=== PATIENT | male | born 1985 | race Caucasian/White ===

== ENCOUNTER 2016-05-12 16:30 | Emergency (ER) | payer MEDICAID ==
[~2016-05-12] VITALS: Wt 58.0 kg
[~2016-05-12 16:30] MED LIST: INSU100I27 SQ; NOVO3I SC
[2016-05-12] MEDS ORDERED: BENZ100C70 PO (17:56)
[2016-05-12] MEDS ORDERED: ALBU8.5H3 INH (17:56)
[2016-05-12] MEDS ORDERED: AZIT250T94 PO (17:56)
[2016-05-12] MEDS ORDERED: ACET500C5 PO (17:56)
--- NOTE | 2016-05-12 21:09 | ERD ---
ER Documentation Chief Complaint Date/Time DATE: 05/12/16 TIME: 21:07 Chief Complaint cough HPI 30-year-old male with a past medical history of diabetes presents to the ED complaining of fever, dry cough, headache, chest congestion that started 1 week ago. Patient states that he has not tried taking any medications. States that he is currently taking insulin after every meal. Reports that he has normal blood sugars. Denies any abdominal pain, nausea, vomiting, diarrhea, rashes, chest pain, shortness of breath, dyspnea on exertion, pleuritic chest pain, leg swelling. Denies any recent traveling. ROS All systems reviewed and are negative except as per history of present illness. Medications Home Meds Active Scripts Acetaminophen* (Tylophen*) 500 Mg Capsule, 1 CAP PO Q6H Y for PAIN AND OR ELEVATED TEMP, #20 CAP Prov:SB CARREON PA-C 05/12/16 Benzonatate* (Tessalon Perle*) 100 Mg Capsule, 100 MG PO Q8H Y for COUGH, #20 CAP Prov:SB CARREON PA-C 05/12/16 Albuterol Sulfate* (Proair HFA*) 8.5 Gm Hfa.aer.ad, 2 PUFF INH Q4, #1 INHALER Prov:SB CARREON PA-C 05/12/16 Azithromycin* (Zithromax*) 250 Mg Tablet, 250 MG PO .ZPACK DIRECTED, #6 TAB TAKE 500 MG (2 TABS) THE FIRST DAY THEN 250 MG (1 TAB) DAYS 2-5 Prov:SB CARREON PA-C 05/12/16 Reported Medications Insulin Detemir (Levemir Flextouch) 100 Unit/1 Ml Insuln.pen, 20 UNIT SQ AC BREAKFAST BEDTIME 03/22/16 Insulin Aspart* (Novolog Insulin Pen*) 100 Unit/Ml Soln, 10-20 UNIT SC WITH MEALS, EA 03/22/16 Allergies Allergies: Coded Allergies: No Known Allergy (Unverified , 03/22/16) PMhx/Soc History of Surgery: Yes (rt hand 2013) Anesthesia Reaction: No Hx Neurological Disorder: No Hx Respiratory Disorders: No Hx Cardiac Disorders: No Hx Psychiatric Problems: No Hx Miscellaneous Medical Probl: Yes (DM) Hx Alcohol Use: No (quit 4 months ago) Hx Substance Use: No (quit 4 months ago) Hx Tobacco Use: No (quit 4 months ago) Smoking Status: Never smoker Physical Exam Vitals Vital Signs Date Time Temp Pulse Resp B/P Pulse Ox O2 Delivery O2 Flow Rate FiO2 05/12/16 16:37 97.8 100 20 117/72 98 Physical Exam Const: [id number], well-nourished. In no acute distress. Head: Atraumatic, normocephalic Eyes: Normal Conjunctiva without injection. No purulent discharge. PERRL. EOMI ENT: Normal external ear. Ear canal without erythema. Tympanic membrane pearly nuñez without effusion or bulging. Nasal canal clear with normal turbinates. Moist oropharynx without tonsillar exudates. Non-erythematous pharynx. Uvula midline. No drooling. No trismus. Neck: Full range of motion. No meningismus. No cervical lymphadenopathy. Resp: Clear to auscultation bilaterally. No wheezing, rhonchi, rales, or crackles. No accessory muscle use. No retractions. Cardio: Regular rate and rhythm. No murmurs, rubs or gallops. Abd: Soft, non tender, non distended. Normal bowel sounds. No palpable masses. No rebound tenderness. No guarding. Skin: No petechiae or rashes Back: No midline tenderness. No CVA tenderness. Ext: No cyanosis, or edema. Neur: Awake and alert. Psych: Normal Mood and Affect Procedures/MDM 30-year-old male with no significant past medical history presents the ED complaining of cough, headache, chest congestion. Patient is afebrile and nontoxic-appearing. Patient has normal vital signs. This patient presents to the ED with symptoms consistent with bronchitis. Patient is afebrile and has normal vital signs. Patient's physical exam include lungs which were clear to auscultation and a normal pulse oximetry. There is a low suspicion for pneumonia , pneumothorax, pulmonary embolism, epiglottitis, otitis media, otitis externa, viral/strep pharyngitis, sinusitis, peritonsillar abscess, mastoiditis, retropharyngeal abscess, meningitis, sepsis, acute abdomen or other emergent conditions. Fluids, rest, and symptomatic treatment are recommended for the management of patient's symptoms. Discharge medications: Zithromax, Tylenol, Pro-air, Tessalon Perles Patient was instructed to return to the ED for any new or worsening symptoms. They should otherwise follow up with the primary care provider within 1-2 days. The patient's questions were answered at the time of discharge. Patient understood and agreed with discharge management. Departure Diagnosis: Primary Impression: Bronchitis Condition: Stable Patient Instructions: Bronchitis, Antiobiotic Treatment (Adult) Referrals: [facility] YOU HAVE RECEIVED A MEDICAL SCREENING EXAM AND THE RESULTS INDICATE THAT YOU DO NOT HAVE A CONDITION THAT REQUIRES URGENT TREATMENT IN THE EMERGENCY DEPARTMENT. FURTHER EVALUATION AND TREATMENT OF YOUR CONDITION CAN WAIT UNTIL YOU ARE SEEN IN YOUR DOCTORS OFFICE WITHIN THE NEXT 1-2 DAYS. IT IS YOUR RESPONSIBILITY TO MAKE AN APPOINTMENT FOR FOLOW-UP CARE. IF YOU HAVE A PRIMARY DOCTOR --you should call your primary doctor and schedule an appointment IF YOU DO NOT HAVE A PRIMARY DOCTOR YOU CAN CALL OUR PHYSICIAN REFERRAL HOTLINE AT IF YOU CAN NOT AFFORD TO SEE A PHYSICIAN YOU CAN CHOSE FROM THE FOLLOWING [facility] [address] [facility] [address] [facility]. [facility] [address] [facility] [address] [facility] [place] [address] [facility]. [address] [facility]. [facility] YOU HAVE RECEIVED A MEDICAL SCREENING EXAM AND THE RESULTS INDICATE THAT YOU DO NOT HAVE A CONDITION THAT REQUIRES URGENT TREATMENT IN THE EMERGENCY DEPARTMENT. FURTHER EVALUATION AND TREATMENT OF YOUR CONDITION CAN WAIT UNTIL YOU ARE SEEN IN YOUR DOCTORS OFFICE WITHIN THE NEXT 1-2 DAYS. IT IS YOUR RESPONSIBILITY TO MAKE AN APPOINTMENT FOR FOLOW-UP CARE. IF YOU HAVE A PRIMARY DOCTOR --you should call your primary doctor and schedule and appointment IF YOU DO NOT HAVE A PRIMARY DOCTOR YOU CAN CALL OUR PHYSICIAN REFERRAL HOTLINE AT . IF YOU CAN NOT AFFORD TO SEE A PHYSICIAN YOU CAN CHOSE FROM THE FOLLOWING [facility] INSTITUTIONS: [facility] [place] [id number] [place] [id number] [facility] [address] [place] [address] [facility] + [facility] [address] [place] [address] [facility] URGENT CARE/SPECIALTIES Additional Instructions: Visite a tabares trevin garcia para un EXAMEN.Regrese a estas instalaciones si no se mejora keshav esperbamos o keshav le dijimos. SB CARREON PA-C May 12, 2016 21:09
== END 2016-05-12 18:26 | disposition home or self-care (01) ==
LOC: FTE 16:30
DX: J20.9 Acute bronchitis, unspecified (principal); E11.9 Type 2 diabetes mellitus without complications; Z87.891 Personal history of nicotine dependence; Z79.4 Long term (current) use of insulin
CPT/HCPCS: 99284

== ENCOUNTER 2017-02-10 20:13 | Emergency (ER) | payer SELFPAY ==
[~2017-02-10] VITALS: Ht 167.6 cm; Wt 53.1 kg
[~2017-02-10 20:13] MED LIST changes: +ACET500C5 PO; +ALBU8.5H3 INH; +AZIT250T94 PO; +BENZ100C70 PO
[2017-02-10 20:21] VITALS: Ht 167.6 cm; Wt 53.1 kg
== END 2017-02-10 23:49 | disposition left against medical advice (07) ==
LOC: E/R 20:13
DX: Z53.21 Procedure and treatment not carried out due to patient leaving prior to being seen by health care provider (principal)

== ENCOUNTER 2017-02-25 23:56 | Emergency (ER) | payer SELFPAY ==
[~2017-02-25] VITALS: Ht 170.2 cm; Wt 61.3 kg
[2017-02-26 00:49] VITALS: Ht 170.2 cm; Wt 61.3 kg
--- NOTE | 2017-02-26 00:49 | ERD ---
ER Documentation Chief Complaint Chief Complaint sob x 15 minutes. states feels like something stuck in throat, etoh, edible HPI 31-year-old man brought in by girlfriend for complaints of shortness of breath after waking up about an hour prior to arrival. He describes a sore throat but denies fevers or chills, no cough, no calf or leg swelling. Patient denies difficulty swallowing or speaking. ROS All systems reviewed and are negative except as per history of present illness. Medications Home Meds Active Scripts Acetaminophen* (Tylophen*) 500 Mg Capsule, 1 CAP PO Q6H Y for PAIN AND OR ELEVATED TEMP, #20 CAP Prov:SB CARREON PA-C 05/12/16 Benzonatate* (Tessalon Perle*) 100 Mg Capsule, 100 MG PO Q8H Y for COUGH, #20 CAP Prov:SB CARREON PA-C 05/12/16 Albuterol Sulfate* (Proair HFA*) 8.5 Gm Hfa.aer.ad, 2 PUFF INH Q4, #1 INHALER Prov:SB CARREON PA-C 05/12/16 Azithromycin* (Zithromax*) 250 Mg Tablet, 250 MG PO .ZPACK DIRECTED, #6 TAB TAKE 500 MG (2 TABS) THE FIRST DAY THEN 250 MG (1 TAB) DAYS 2-5 Prov:SB CARREON PA-C 05/12/16 Reported Medications Insulin Detemir (Levemir Flextouch) 100 Unit/1 Ml Insuln.pen, 20 UNIT SQ AC BREAKFAST BEDTIME 03/22/16 Insulin Aspart* (Novolog Insulin Pen*) 100 Unit/Ml Soln, 10-20 UNIT SC WITH MEALS, EA 03/22/16 Allergies Allergies: Coded Allergies: No Known Allergy (Unverified , 02/10/17) PMhx/Soc Diabetes mellitus, anemia, history of drug and alcohol abuse, hypertension History of Surgery: Yes (rt hand 2013) Anesthesia Reaction: No Hx Neurological Disorder: No Hx Respiratory Disorders: No Hx Cardiac Disorders: No Hx Psychiatric Problems: No Hx Miscellaneous Medical Probl: Yes (DM) Hx Alcohol Use: No (quit 4 months ago) Hx Substance Use: No (quit 4 months ago) Hx Tobacco Use: No (quit 4 months ago) FmHx Family History: diabetes Physical Exam Vitals Vital Signs Date Time Temp Pulse Resp B/P Pulse Ox O2 Delivery O2 Flow Rate FiO2 02/26/17 03:50 97.9 120 12 109/67 97 Room Air 02/26/17 03:00 110 14 128/97 99 02/26/17 02:56 92 20 98 21 02/26/17 02:00 96 15 114/75 99 Room Air 02/26/17 01:00 16 110/74 99 Room Air 02/26/17 00:45 98.6 99 15 130/97 99 Room Air 02/26/17 00:01 98.6 121 20 167/111 95 Physical Exam GENERAL: Well-developed, well-nourished, appears intoxicated, afebrile HEENT: Moist mucous membranes, pink conjunctiva, no cervical spine tenderness or step-off deformities, no goiter, no jaundice or icterus, extraocular movements intact without pain. No submandibular induration, and no pharyngeal erythema NEURO: Alert and oriented 3, cranial nerves II through XII intact bilaterally, pupils equal round reactive to light, no focal deficits or facial asymmetry, sensation intact distally Strength 5/5 in upper and lower extremities bilaterally CARDIAC: Tachycardic and regular, no murmurs rubs or gallops LUNGS: Poor breath sounds bilaterally, scattered wheezes, no crackles or stridor ABDOMEN: Soft nontender, no guarding, no rigidity, no rebound, no psoas sign no obturator sign. Normoactive bowel sounds SKIN: Warm and dry to touch, no abrasions, contusions, or hematomas, no lacerations, no ecchymosis, no target lesions, and without ulcers EXTREMITIES: No clubbing cyanosis or edema, calves are bilaterally symmetrical, no Homans sign, no popliteal cord sign. Distal pulses equal and bilateral PSYCH: Normal affect without agitation or irritability Result Diagram: 02/26/1711402/26/17114 Results 24 hrs Laboratory Tests Test 02/26/17 00:45 02/26/17 00:59 02/26/17 01:15 02/26/17 02:55 Bedside Glucose 241mg/dL Blood Gas Specimen Source Blood arterial Arterial Blood Date Drawn 02/26/2017 1:20:40 AM Arterial Blood pH (Temp corrected) 7.407 Arterial Blood pCO2 (Temp correct) 42.7mmhg Arterial Blood pO2 (Temp corrected) 92.1mmHG Arterial Blood HCO3 26.3mmol/L Arterial Blood Base Excess 1.4mmol/L Arterial Blood Oxygen Saturation 96.7mmHG Ian Test ACCEPTAB Arterial Blood Gas Puncture Site Right Radial Arterial Blood Carboxyhemoglobin 0.3% Arterial Blood Methemoglobin 0.3% Blood Gas A-a O2 Differential 6.5mmHg Oxyhemoglobin Percent 96.1% Total Hemoglobin 10.8g/dl Blood Gas Temperature 37.0C Blood Gas Actual Respiration Rate 18 Blood Gas Modality ROOM AIR FiO2 21.0% Blood Gas Notified Whom Blood Gas Notified Time 02/26/2017 1:26:15 AM White Blood Count 8.210^3/ul Red Blood Count 3.2210^6/ul Hemoglobin 9.9g/dl Hematocrit 29.9% Mean Corpuscular Volume 92.9fl Mean Corpuscular Hemoglobin 30.7pg Mean Corpuscular Hemoglobin Concent 33.1g/dl Red Cell Distribution Width 13.2% Platelet Count 18845^3/UL Mean Platelet Volume 9.8fl Neutrophils % 71.4% Lymphocytes % 18.4% Monocytes % 8.3% Eosinophils % 1.0% Basophils % 0.5% Nucleated Red Blood Cells % 0.0/100WBC Neutrophils # 5.910^3/ul Lymphocytes # 1.510^3/ul Monocytes # 0.710^3/ul Eosinophils # 0.110^3/ul Basophils # 0.010^3/ul Nucleated Red Blood Cells # 0.010^3/ul Sodium Level 141mmol/L Potassium Level 4.9mmol/L Chloride Level 103mmol/L Carbon Dioxide Level 30mmol/L Anion Gap 13 Blood Urea Nitrogen 15mg/dl Creatinine 0.55mg/dl Glucose Level 253mg/dl Calcium Level 9.0mg/dl Total Bilirubin 0.0mg/dl Direct Bilirubin 0.00mg/dl Indirect Bilirubin 0.0mg/dl Aspartate Amino Transf (AST/SGOT) 30IU/L Alanine Aminotransferase (ALT/SGPT) 45IU/L Alkaline Phosphatase 83IU/L Troponin I < 0.012ng/ml Total Protein 6.6g/dl Albumin 3.4g/dl Globulin 3.20g/dl Albumin/Globulin Ratio 1.06 Lipase 79U/L Ethyl Alcohol Level < 10.0mg/dl Urine Color STRAW Urine Clarity CLEAR Urine pH 7.0 Urine Specific [place] 1.017 Urine Ketones NEGATIVEmg/dL Urine Nitrite NEGATIVEmg/dL Urine Bilirubin NEGATIVEmg/dL Urine Urobilinogen NEGATIVEmg/dL Urine Leukocyte Esterase NEGATIVELeu/ul Urine Hemoglobin NEGATIVEmg/dL Urine Glucose 3+mg/dL Urine Total Protein NEGATIVEmg/dl Urine Opiates Screen Negative Urine Barbiturates Negative Urine Amphetamines Screen Negative Urine Benzodiazepines Screen Negative Urine Cocaine Screen Negative Urine Cannabinoids Positive Current Medications Medications (Trade) Dose Ordered Sig/Allie Route PRN Reason Start Time Stop Time Status Last Admin Dose Admin Sodium Chloride (NS) 1,000 ml @ 1,000 mls/hr Q1H STAT IV 02/26/17 00:59 02/26/17 01:58 DC 02/26/17 01:50 Albuterol (Proventil 0.5% (Neb)) 10 mg ONCE STAT INH 02/26/17 00:59 02/26/17 01:02 DC 02/26/17 02:56 Procedures/MDM IV line was established patient was placed on conveyor monitor rhythm strip revealed a sinus tachycardia at 110 bpm. Patient was afebrile. EKG performed, read by me: 97 bpm, normal sinus rhythm, normal axis, no acute ST segment changes, narrow QRS complex, with good R-wave progression in precordial leads. Chest X-ray 1V Interpreted by me: Soft Tissue: No acute abnormalities Bones: No acute abnormalities Mediastinum/Cardiac Silhouette/Lungs: No acute abnormalities ABG performed, normal. I administered 1 L normal saline intravenously and albuterol 10 mg via nebulizer for complaints of shortness of breath. CBC and electrolytes were normal, liver function tests were normal, troponin was negative, ethanol level was negative, drug screen positive for cannabinoids. Patient has no obvious oral or pharyngeal foreign body and has no pharyngeal erythema or exudates, uvula is midline, and is no submandibular induration. Pulmonary exam was repeated by me after breathing treatment and was normal, he had clear lungs without wheezing or stridor. Respiratory rate was normal at about 18 breaths per minute and oxygen saturation was within normal limits. Differential diagnoses considered, included but not limited to acute coronary syndrome, pulmonary embolism, aortic dissection, abdominal aortic aneurysm, sepsis, stroke, meningitis, encephalitis, pneumonia, appendicitis, cholecystitis , bowel obstruction, pyelonephritis, nephrolithiasis, cystitis, as well as metabolic, hematologic, and electrolyte abnormalities. As well as abscess, cellulitis, fractures, and dislocations. Patient feels much better at this time, and vital signs are normal, symptoms have improved. I did give strict instructions to return to the ED if symptoms continue or worsen, patient will otherwise follow-up with primary care physician. Patient understood instructions and agreed to plan. Disclaimer: Inadvertent spelling and grammatical errors are likely due to EHR/ dictation software use and do not reflect on the overall quality of patient care. Also, please note that the electronic time recorded on this note does not necessarily reflect the actual time of the patient encounter. Departure Diagnosis: Primary Impression: Shortness of breath Condition: Good RAHUL QUIROZ MD Feb 26, 2017 00:49
[2017-02-26] MEDS ORDERED: ALBUTEROL 0.5% (NEB) 2.5 MG/0.5 ML AMP INH STA (00:59)
[2017-02-26] MEDS ORDERED: SOD CHLORIDE 0.9% 1,000 ML IV STA (00:59)
[2017-02-26 01:51] LABS: BASOPHILS % 0.5 % (0.0-2.0); EOSINOPHILS # 0.1 10^3/ul (0.0-0.5); HEMATOCRIT 29.9 % (42.0-52.0); HEMOGLOBIN 9.9 g/dl (14.0-18.0); LYMPHOCYTES # 1.5 10^3/ul (0.8-2.9); LYMPHOCYTES % 18.4 % (15.0-51.0); MEAN CORPUSCULAR HEMOGLOBIN 30.7 pg (29.0-33.0); MEAN CORPUSCULAR HGB CONC 33.1 g/dl (32.0-37.0); MEAN CORPUSCULAR VOLUME 92.9 fl (82.0-101.0); MEAN PLATELET VOLUME 9.8 fl (7.4-10.4); MONOCYTE # 0.7 10^3/ul (0.3-0.9); MONOCYTES % 8.3 % (0.0-11.0); NEUTROPHIL # 5.9 10^3/ul (1.6-7.5); NEUTROPHILS % 71.4 % (39.0-77.0); PLATELET COUNT 430 10^3/UL (140-415); RED BLOOD COUNT 3.22 10^6/ul (4.70-6.10); RED CELL DISTRIBUTION WIDTH 13.2 % (11.5-14.5); WHITE BLOOD COUNT 8.2 10^3/ul (4.8-10.8)
[2017-02-26 02:06] LABS: ALANINE AMINOTRANSFERASE 45 IU/L (13-69); ALBUMIN 3.4 g/dl (3.3-4.9); ALBUMIN/GLOBULIN RATIO 1.06; ALKALINE PHOSPHATASE 83 IU/L (42-121); ANION GAP 13 (8-16); ASPARTATE AMINO TRANSFERASE 30 IU/L (15-46); BLOOD UREA NITROGEN 15 mg/dl (7-20); CARBON DIOXIDE 30 mmol/L (21-31); CHLORIDE 103 mmol/L (97-110); CREATININE 0.55 mg/dl (0.61-1.24); GLUCOSE 253 mg/dl (70-220); POTASSIUM 4.9 mmol/L (3.5-5.1); SODIUM 141 mmol/L (135-144); TOTAL PROTEIN 6.6 g/dl (6.1-8.1)
[2017-02-26 02:21] LABS: TROPONIN-I < 0.012 ng/ml (0.00-0.12)
[2017-02-26 02:48] LABS: AADO2 Arterial 6.5 mmHg (7.0-24.0); Allen Test ACCEPTAB; Arterial Base Excess 1.4 mmol/L (-3.0-3); Arterial COHb 0.3 % (0.0-3.0); Arterial Fraction of Oxyhgb 96.1 % (93.0-99.0); Arterial HCO3 26.3 mmol/L (22.0-26.0); Arterial MetHb 0.3 % (0.0-1.5); Arterial Total Hemglobin 10.8 g/dl (12.0-18.0); MODE ROOM AIR
[2017-02-26 03:23] LABS: ADD UMIC NO; UR ASCORBIC ACID NEGATIVE (NEGATIVE); UR BILIRUBIN (Dip) NEGATIVE (NEGATIVE); UR BLOOD (Dip) NEGATIVE (NEGATIVE); UR CLARITY CLEAR (CLEAR); UR COLOR STRAW (YELLOW); UR GLUCOSE (Dip) 3+ mg/dL (NEGATIVE); UR KETONES (Dip) NEGATIVE (NEGATIVE); UR LEUKOCYTE ESTERASE (Dip) NEGATIVE Leu/ul (NEGATIVE); UR NITRITE (Dip) NEGATIVE (NEGATIVE); UR SPECIFIC GRAVITY (Dip) 1.017 (1.003-1.030); UR TOTAL PROTEIN (Dip) NEGATIVE (NEGATIVE); UR UROBILINOGEN (Dip) NEGATIVE (NEGATIVE)
[2017-02-26 03:50] VITALS: BP 109/67; PULSE 120; RESP 12; TEMP 97.9
[2017-02-26 03:54] LABS: BARBITURATES Negative (NEGATIVE); BENZODIAZEPINES Negative (NEGATIVE); CANNABINOIDS Positive (NEGATIVE); COCAINE Negative (NEGATIVE); OPIATES Negative (NEGATIVE)
--- NOTE | 2017-02-26 04:02 | RADRPT ---
PROCEDURE: CHEST - 1 VIEW CLINICAL INDICATION: 31-year-old male with shortness of breath. TECHNIQUE: A single frontal AP semi-erect portable view of the chest was performed. The images we re reviewed on a PACS workstation. COMPARISON: CR CHEST 10/23/2015; CR CHEST 03/22/2015; CR CHEST 02/05/2015 FINDINGS: The cardiomediastinal silhouette has a normal appearance. There is no evidence for an infiltrate. T he pulmonary vascularity is within normal limits. There is no evidence for pneumothorax or pneumomed iastinum. The osseous structures are intact. IMPRESSION: No evidence for active cardiopulmonary disease. .Wale Campbell MD, Date Time Electronically viewed and signed by .Wale Campbell MD, on 02/26/2017 04:02 .[place]
== END 2017-02-26 04:18 | disposition home or self-care (01) ==
LOC: E/R 23:56
DX: R06.02 Shortness of breath (principal)
CPT/HCPCS: 36415; 36600; 71010; 80053; 80306; 80307; 81003; 82803; 82962; 83690; 84484; 85025; 93005; 94644; 99285; J7030

== ENCOUNTER 2017-02-28 15:05 | Emergency (ER) | payer MEDICAID ==
[~2017-02-28] VITALS: Ht 167.6 cm; Wt 65.0 kg
[2017-02-28 15:16] VITALS: Ht 167.6 cm; Wt 65.0 kg
[2017-02-28] MEDS ORDERED: DEXTROSE 50% 50 ML SYRINGE ONE (15:22)
[2017-02-28] MEDS ORDERED: FLUMAZENIL 0.5 MG INJ ONE (15:30)
[2017-02-28] MEDS ORDERED: DEXTROSE 50% 50 ML SYRINGE IV STA (15:40)
[2017-02-28] MEDS ORDERED: FLUMAZENIL 0.5 MG INJ IV ONE (16:00)
[2017-02-28] MEDS ORDERED: DEXTROSE 50% 50 ML SYRINGE IV ONE (16:00)
[2017-02-28 16:30] LABS: CALCIUM 9.4 mg/dl (8.4-10.2); CREATININE 0.53 mg/dl (0.61-1.24); POTASSIUM 3.5 mmol/L (3.5-5.1)
--- NOTE | 2017-02-28 17:09 | ERD ---
ER Documentation Chief Complaint Chief Complaint BIB [facility] FOR EVAL OF LOW GLUCOSE. MEDICATED BY EMS RESEARCH ASSISTANT. HPI This a 31-year-old male who is found laying in the grass having a seizure by bystanders. EMS was called he was given Versed to stop the seizure. Blood sugar was checked his blood glucose was 44. He was given an amp of glucose and his sugar courtney the patient was better clinically but he was very groggy from the Versed. On arrival is difficult to question him because he kept falling asleep during examination. I will reverse the Versed with Romazicon. After Romazicon was given the patient is more awake and alert in and he states that he has had multiple episodes of hypoglycemic seizures past. The patient states that he took his insulin this morning but has eaten very little today. Says he has no headache chest pain breathing problems abdominal pain extremity pain.. He said he does not have epilepsy but his seizures are always due to hypoglycemic spells ROS All systems reviewed and are negative except as per history of present illness. Medications Home Meds Reported Medications Insulin Detemir (Levemir Flextouch) 100 Unit/1 Ml Insuln.pen, 10 UNIT SQ AC BREAKFAST BEDTIME 03/22/16 Insulin Aspart* (Novolog Insulin Pen*) 100 Unit/Ml Soln, 15 UNIT SC WITH MEALS, EA 03/22/16 Discontinued Scripts Acetaminophen* (Tylophen*) 500 Mg Capsule, 1 CAP PO Q6H Y for PAIN AND OR ELEVATED TEMP, #20 CAP Prov:SB CARREON PA-C 05/12/16 Benzonatate* (Tessalon Perle*) 100 Mg Capsule, 100 MG PO Q8H Y for COUGH, #20 CAP Prov:SB CARREON PA-C 05/12/16 Albuterol Sulfate* (Proair HFA*) 8.5 Gm Hfa.aer.ad, 2 PUFF INH Q4, #1 INHALER Prov:SB CARREON PA-C 05/12/16 Azithromycin* (Zithromax*) 250 Mg Tablet, 250 MG PO .ZPACK DIRECTED, #6 TAB TAKE 500 MG (2 TABS) THE FIRST DAY THEN 250 MG (1 TAB) DAYS 2-5 Prov:SB CARREON PA-C 05/12/16 Allergies Allergies: Coded Allergies: No Known Allergy (Unverified , 02/28/17) PMhx/Soc History of Surgery: Yes (rt hand 2013) Anesthesia Reaction: No Hx Neurological Disorder: No Hx Respiratory Disorders: No (No resp hx ) Hx Cardiac Disorders: No Hx Psychiatric Problems: No Hx Miscellaneous Medical Probl: Yes (IDDM Age 18) Hx Alcohol Use: Yes (2-3 beers/day (32 oz ea), ) Hx Substance Use: No (denies.) Hx Tobacco Use: No Smoking Status: Former smoker FmHx Family History: No coronary disease Physical Exam Vitals Vital Signs Date Time Temp Pulse Resp B/P Pulse Ox O2 Delivery O2 Flow Rate FiO2 02/28/17 19:17 107 18 142/100 100 Room Air 02/28/17 17:00 104 18 128/96 98 Room Air 02/28/17 15:16 97.9 96 18 145/99 97 Physical Exam Const: Well-developed, well-nourished Head: Atraumatic, normocephalic Eyes: Normal Conjunctiva, PERRLA, EOMI, normal sclera, no nystagmus ENT: Normal External Ears, Nose and Mouth, moist mucus membranes. Neck: Full range of motion. No meningismus, no lymphadenopathy. Resp: Clear to auscultation bilaterally, no wheezing, rhonchi, rales Cardio: Regular rate and rhythm, no murmurs, S1 S2 present Abd: Soft, non tender x 4, non distended. Normal bowel sounds, no guarding or rebound, no pulsitile abdominal masses or bruits Skin: No petechiae or rashes, no ecchymosis , no maculopapular rash Back: No midline or flank tenderness Ext: No cyanosis, or edema, FROM x 4, normal inspection, neurovascularly intact x 4 Neur: Awake and alert, STR 5/5 x 4, sensation intact x 4, no focal findings, cerebellum intact Psych: Normal Mood and Affect Result Diagram: 02/28/17 1600 Results 24 hrs Laboratory Tests Test 02/28/17 15:19 02/28/17 16:00 02/28/17 16:03 02/28/17 16:53 Bedside Glucose 48mg/dL 120mg/dL 142mg/dL Sodium Level 141mmol/L Potassium Level 3.5mmol/L Chloride Level 101mmol/L Carbon Dioxide Level 33mmol/L Anion Gap 11 Blood Urea Nitrogen 15mg/dl Creatinine 0.53mg/dl Glucose Level 44mg/dl Calcium Level 9.4mg/dl Test 02/28/17 18:40 Bedside Glucose 150mg/dL Current Medications Medications (Trade) Dose Ordered Sig/Allie Route PRN Reason Start Time Stop Time Status Last Admin Dose Admin Dextrose (D50w Syringe) 50 ml ONCE STAT IV 02/28/17 15:40 02/28/17 15:42 DC 02/28/17 15:54 Dextrose (D50w Syringe) 50 ml ONCE ONCE IV 02/28/17 16:00 02/28/17 16:01 DC 02/28/17 15:54 Flumazenil (Romazicon) 0.2 mg ONCE ONCE IV 02/28/17 16:00 02/28/17 16:01 DC 02/28/17 15:54 Flumazenil (Romazicon) 0.5 mg STK-MED ONCE .ROUTE 02/28/17 15:30 02/28/17 16:33 DC Dextrose (D50w Syringe) 50 ml STK-MED ONCE .ROUTE 02/28/17 15:22 02/28/17 16:33 DC Procedures/MDM Patient was given glucose intravenously as well as had a food tray. Subsequent rechecks of the blood sugar been adequate and stable for couple of hours of discharge home Departure Diagnosis: Primary Impression: Hypoglycemia Additional Impression: Seizure Condition: Stable MILEY JENKINS DO Feb 28, 2017 17:09
[2017-02-28 19:17] VITALS: BP 142/100; PULSE 107; RESP 18
== END 2017-02-28 19:35 | disposition home or self-care (01) ==
LOC: E/R 15:05
DX: E11.649 Type 2 diabetes mellitus with hypoglycemia without coma (principal); Z87.891 Personal history of nicotine dependence; Z79.4 Long term (current) use of insulin
CPT/HCPCS: 80048; 82962; 96374; 96375; Z7502; Z7610

== ENCOUNTER 2017-03-02 20:26 | Emergency (ER) | payer MEDICAID ==
[~2017-03-02] VITALS: Ht 170.2 cm; Wt 58.9 kg
[~2017-03-02 20:26] MED LIST changes: -ACET500C5 PO; -ALBU8.5H3 INH; -AZIT250T94 PO; -BENZ100C70 PO
[2017-03-02 20:50] VITALS: Ht 170.2 cm; Wt 58.9 kg
[2017-03-02] MEDS ORDERED: SODIUM CHLORIDE 0.9% 1L BAG IV* STA (21:10)
--- NOTE | 2017-03-02 21:12 | ERD ---
ER Documentation Chief Complaint Chief Complaint HYPERGLYCEMIA WITH FEVER AND POLANCO X 2 DAYS HPI 31-year-old male with a history of insulin-dependent diabetes mellitus, chronic alcohol and methamphetamine abuse brought to the ED by his parents for evaluation of a 2 day history of fevers, body aches, generalized malaise, headache, abdominal pain, nausea, vomiting and productive cough. Denies chest pain, palpitations or shortness of breath. Subjective fevers and chills. Denies ill contacts or recent travel. Patient was seen in the ED 2 days ago for altered mental status secondary to hypoglycemia. ROS All systems reviewed and are negative except as per history of present illness. Medications Home Meds Active Scripts Acetaminophen* (Tylenol*) 325 Mg Tablet, 2 TAB PO Q4 for FEVER, #20 TAB Prov:SHAY GARZA MD 03/03/17 Ibuprofen* (Motrin*) 600 Mg Tab, 600 MG PO Q6 Y for PAIN, #20 TAB Prov:SHAY GARZA MD 03/03/17 Ciprofloxacin Hcl* (Ciprofloxacin Hcl*) 500 Mg Tablet, 500 MG PO BID for 10 Days , TAB Prov:SHAY GARZA MD 03/03/17 Reported Medications Insulin Detemir (Levemir Flextouch) 100 Unit/1 Ml Insuln.pen, 10 UNIT SQ AC BREAKFAST BEDTIME 03/22/16 Insulin Aspart* (Novolog Insulin Pen*) 100 Unit/Ml Soln, 15 UNIT SC WITH MEALS, EA 03/22/16 Discontinued Scripts Acetaminophen* (Tylophen*) 500 Mg Capsule, 1 CAP PO Q6H Y for PAIN AND OR ELEVATED TEMP, #20 CAP Prov:SB CARREON PA-C 05/12/16 Benzonatate* (Tessalon Perle*) 100 Mg Capsule, 100 MG PO Q8H Y for COUGH, #20 CAP Prov:SB CARREON PA-C 05/12/16 Albuterol Sulfate* (Proair HFA*) 8.5 Gm Hfa.aer.ad, 2 PUFF INH Q4, #1 INHALER Prov:SB CARREON PA-C 05/12/16 Azithromycin* (Zithromax*) 250 Mg Tablet, 250 MG PO .ZPACK DIRECTED, #6 TAB TAKE 500 MG (2 TABS) THE FIRST DAY THEN 250 MG (1 TAB) DAYS 2-5 Prov:SB CARREON PA-C 05/12/16 Allergies Allergies: Coded Allergies: No Known Allergy (Unverified , 03/02/17) PMhx/Soc Reviewed in chart History of Surgery: Yes (rt hand 2013) Anesthesia Reaction: No Hx Neurological Disorder: No Hx Respiratory Disorders: No (No resp hx ) Hx Cardiac Disorders: No Hx Psychiatric Problems: No Hx Miscellaneous Medical Probl: Yes (IDDM Age 18) Hx Alcohol Use: Yes (2-3 beers/day (32 oz ea), ) Hx Substance Use: No (denies.) Hx Tobacco Use: No FmHx No family history relevant to presenting complaint Physical Exam Vitals Vital Signs Date Time Temp Pulse Resp B/P Pulse Ox O2 Delivery O2 Flow Rate FiO2 03/02/17 23:15 100.5 108 16 118/72 97 Room Air 03/02/17 21:40 Nasal Cannula 2 03/02/17 20:50 104.0 128 24 146/71 100 Physical Exam Const: Alert, moderate distress Head: Atraumatic Eyes: Normal Conjunctiva ENT: Normal External Ears, Nose and Mouth. Lungs clear without erythema or exudate Neck: Full range of motion. No meningismus. Resp: Breath sounds are equal and clear to auscultation bilaterally Cardio: Regular rate and rhythm, no murmurs Abd: Soft, mild, generalized tenderness but no rebound or guarding. Skin: No petechiae or rashes Back: No midline or flank tenderness Ext: No cyanosis, or edema Neur: Awake and alert. No focal deficit observed. Psych: Cooperative, anxious. Result Diagram: 03/02/17212903/02/172129 Results 24 hrs Laboratory Tests Test 03/02/17 20:48 03/02/17 21:10 03/02/17 21:30 03/02/17 23:53 Bedside Glucose 324mg/dL Blood Gas Specimen Source Blood venous Arterial Blood Date Drawn 03/02/2017 10:33:50 PM Arterial Blood Gas Puncture Site VENOUS LINE Ian Test N/A Venous Blood pH 7.409 Venous Blood pCO2 (Temp Corrected) 40.9mmHG Venous Blood pO2 (Temp Corrected) 32.5mmHG Venous Blood HCO3 25.3mmol/L Venous Blood Oxygen Saturation 62.0mmHG Venous Blood Base Excess 0.6mmol/L Venous Blood Total Hemoglobin 11.4g/dl Venous Blood Oxyhemoglobin 61.9% Venous Blood Methemoglobin 0.1% Carboxyhemoglobin 0.1% Blood Gas Temperature 37.0C Blood Gas Modality ROOM AIR FiO2 21.0% Blood Gas Notified Whom AA Blood Gas Notified Time 03/02/2017 10:41:03 PM White Blood Count 13.310^3/ul Red Blood Count 3.5210^6/ul Hemoglobin 10.8g/dl Hematocrit 31.7% Mean Corpuscular Volume 90.1fl Mean Corpuscular Hemoglobin 30.7pg Mean Corpuscular Hemoglobin Concent 34.1g/dl Red Cell Distribution Width 13.1% Platelet Count 56239^3/UL Mean Platelet Volume 10.1fl Neutrophils % 82.2% Lymphocytes % 7.1% Monocytes % 9.6% Eosinophils % 0.1% Basophils % 0.3% Nucleated Red Blood Cells % 0.0/100WBC Neutrophils # 10.910^3/ul Lymphocytes # 0.910^3/ul Monocytes # 1.310^3/ul Eosinophils # 0.010^3/ul Basophils # 0.010^3/ul Nucleated Red Blood Cells # 0.010^3/ul Prothrombin Time 13.9Sec Prothrombin Time Ratio 1.1 INR International Normalized Ratio 1.06 Activated Partial Thromboplast Time 34.7Sec Urine Color YELLOW Urine Clarity TURBID Urine pH 6.0 Urine Specific [place] 1.020 Urine Ketones NEGATIVEmg/dL Urine Nitrite NEGATIVEmg/dL Urine Bilirubin NEGATIVEmg/dL Urine Urobilinogen NEGATIVEmg/dL Urine Leukocyte Esterase 3+Elizabeth/ul Urine Microscopic RBC > 182/HPF Urine Microscopic WBC > 182/HPF Urine Hemoglobin 3+mg/dL Urine Glucose 3+mg/dL Urine Total Protein 2+mg/dl Sodium Level 127mmol/L Potassium Level 4.4mmol/L Chloride Level 91mmol/L Carbon Dioxide Level 29mmol/L Anion Gap 11 Blood Urea Nitrogen 15mg/dl Creatinine 0.70mg/dl Glucose Level 342mg/dl Lactic Acid Level 1.2mmol/L 0.8mmol/L Calcium Level 9.5mg/dl Total Bilirubin 0.4mg/dl Direct Bilirubin 0.00mg/dl Indirect Bilirubin 0.4mg/dl Aspartate Amino Transf (AST/SGOT) 23IU/L Alanine Aminotransferase (ALT/SGPT) 43IU/L Alkaline Phosphatase 115IU/L Troponin I < 0.012ng/ml Total Protein 6.8g/dl Albumin 3.5g/dl Globulin 3.30g/dl Albumin/Globulin Ratio 1.06 Urine Opiates Screen Negative Urine Barbiturates Negative Urine Amphetamines Screen Negative Urine Benzodiazepines Screen Negative Urine Cocaine Screen Negative Urine Cannabinoids Negative Lipase 37U/L Ethyl Alcohol Level < 10.0mg/dl Current Medications Medications (Trade) Dose Ordered Sig/Allie Route PRN Reason Start Time Stop Time Status Last Admin Dose Admin Sodium Chloride 1830 ml 1,830 ml BOLUS OVER 2 HOURS STAT IV* 03/02/17 21:10 03/02/17 21:12 DC 03/02/17 21:43 Cefepime HCl 50 ml @ 100 mls/hr ONCE STAT IVPB 03/02/17 22:03 03/02/17 22:32 DC 03/02/17 22:23 Vancomycin HCl (Vancocin) 250 ml @ 125 mls/hr ONCE ONCE IVPB 03/02/17 22:30 03/03/17 00:29 DC 03/02/17 22:23 Acetaminophen 650 mg 650 mg ONCE ONCE PO 03/02/17 22:30 03/02/17 22:31 DC 03/02/17 22:22 Ceftriaxone Sodium (Rocephin) 50 ml @ 100 mls/hr ONCE ONCE IVPB 03/03/17 00:00 03/03/17 00:29 DC EKG: TIME: 21: 22. Sinus tachycardia. Ventricular rate 134. Normal FL and QRS. No ectopy. No acute ST-T wave changes. EP Interpretation: Abnormal EKG. IMAGING: Chest AP portable: Cardiac silhouette is normal. The costophrenic angles are clear. No effusions or infiltrates. No abnormalities of the bony thorax. Procedures/MDM DOCUMENTS REVIEWED: ED nurse, prior ED, prior records REEXAMINATION/REEVALUATION: Time: 23:30. Well. Asymptomatic. Vital signs stable. Wants to go home. [employer] DECISION MAKIN-year-old male with a history of insulin-dependent diabetes mellitus, chronic alcohol and methamphetamine abuse brought to the ED by his parents for evaluation of a 2 day history of fever and multiple symptoms. Patient with multiple criteria for systemic inflammatory response syndrome. Influenza a and B are negative. Abdominal exam is benign without rebound, guarding or signs of peritonitis. Hyperglycemia but no DKA or HHS. Urinary tract infection but no CVA tenderness or signs of pyelonephritis. No pneumonia. Symptoms completely resolved with intravenous hydration and antipyretics. Rocephin given and oral antibiotics will be initiated pending discharge. Patient observed in the ED for approximately 4 hours shortness on multiple examinations performed. stable for discharge of precautionary instructions and outpatient follow-up as counseled. Counseled patient and family regarding diagnostic workup, diagnosis and need for followup. Understands to return to ED if symptoms recur, worsen or any other concerns. Departure Diagnosis: Primary Impression: Diabetes mellitus out of control Diabetes mellitus type: type 1 Diabetes mellitus complication status: without complication Qualified Code: E10.65 - Uncontrolled type 1 diabetes mellitus without complication Additional Impressions: Fever Fever type: unspecified Qualified Code: R50.9 - Fever, unspecified fever cause Urinary tract infection Urinary tract infection type: acute cystitis Hematuria presence: with hematuria Qualified Code: N30.01 - Acute cystitis with hematuria SHAY GARZA MD Mar 02, 2017 21:12
--- NOTE | 2017-03-02 21:32 | RADRPT ---
PROCEDURE: XR Chest. CLINICAL INDICATION: Sepsis TECHNIQUE: Frontal chest x-ray was obtained. COMPARISON: Chest x-ray October 23, 2015 FINDINGS: Heart is not enlarged. Mediastinum is not widened. No hilar mass is present. Lungs are clear of any infiltrate or mass. There is no effusion or pneumothorax. IMPRESSION: No evidence for active cardiopulmonary disease. .Lenin Milner MD, MD Date Time Electronically viewed and signed by .Lenin Milner MD, on 03/02/2017 21:32 .A/
[2017-03-02 21:52] LABS: BASOPHILS % 0.3 % (0.0-2.0); EOSINOPHILS % 0.1 % (0.0-7.0); HEMATOCRIT 31.7 % (42.0-52.0); HEMOGLOBIN 10.8 g/dl (14.0-18.0); LYMPHOCYTES # 0.9 10^3/ul (0.8-2.9); LYMPHOCYTES % 7.1 % (15.0-51.0); MEAN CORPUSCULAR HEMOGLOBIN 30.7 pg (29.0-33.0); MEAN CORPUSCULAR HGB CONC 34.1 g/dl (32.0-37.0); MEAN CORPUSCULAR VOLUME 90.1 fl (82.0-101.0); MEAN PLATELET VOLUME 10.1 fl (7.4-10.4); MONOCYTE # 1.3 10^3/ul (0.3-0.9); MONOCYTES % 9.6 % (0.0-11.0); NEUTROPHIL # 10.9 10^3/ul (1.6-7.5); NEUTROPHILS % 82.2 % (39.0-77.0); PLATELET COUNT 265 10^3/UL (140-415); RED BLOOD COUNT 3.52 10^6/ul (4.70-6.10); RED CELL DISTRIBUTION WIDTH 13.1 % (11.5-14.5); WHITE BLOOD COUNT 13.3 10^3/ul (4.8-10.8)
[2017-03-02] MEDS ORDERED: CEFEPIME 2GM/50 ML (PMX) 50 ML IVPB STA (22:03)
[2017-03-02 22:10] LABS: INR 1.06; PARTIAL THROMBOPLASTIN TIME 34.7 Sec (25.0-35.0); PROTIME 13.9 Sec (11.9-14.9); PT RATIO 1.1
[2017-03-02 22:13] LABS: ALANINE AMINOTRANSFERASE 43 IU/L (13-69); ALBUMIN 3.5 g/dl (3.3-4.9); ALBUMIN/GLOBULIN RATIO 1.06; ALKALINE PHOSPHATASE 115 IU/L (42-121); ANION GAP 11 (8-16); ASPARTATE AMINO TRANSFERASE 23 IU/L (15-46); BILIRUBIN,INDIRECT 0.4 mg/dl (0-1.1); BILIRUBIN,TOTAL 0.4 mg/dl (0.2-1.3); BLOOD UREA NITROGEN 15 mg/dl (7-20); CALCIUM 9.5 mg/dl (8.4-10.2); CARBON DIOXIDE 29 mmol/L (21-31); CHLORIDE 91 mmol/L (97-110); GLUCOSE 342 mg/dl (70-220); POTASSIUM 4.4 mmol/L (3.5-5.1); SODIUM 127 mmol/L (135-144); TOTAL PROTEIN 6.8 g/dl (6.1-8.1)
[2017-03-02 22:24] LABS: TROPONIN-I < 0.012 ng/ml (0.00-0.12)
[2017-03-02] MEDS ORDERED: ACETAMINOPHEN 325 MG TAB PO ONE (22:30)
[2017-03-02] MEDS ORDERED: VANCOMYCIN 1 GM (PMX) 250 ML IVPB ONE (22:30)
[2017-03-02 22:41] LABS: MODE ROOM AIR; MetHgb Venous 0.1 %; Sample Type Blood venous; Venous COHb 0.1 %; Venous Fraction OxyHgb 61.9 %; Venous Total Hemglobin 11.4 g/dl
[2017-03-02 22:59] LABS: ADD UMIC YES; UR ASCORBIC ACID NEGATIVE (NEGATIVE); UR BILIRUBIN (Dip) NEGATIVE (NEGATIVE); UR BLOOD (Dip) 3+ mg/dL (NEGATIVE); UR CLARITY TURBID (CLEAR); UR COLOR YELLOW (YELLOW); UR GLUCOSE (Dip) 3+ mg/dL (NEGATIVE); UR KETONES (Dip) NEGATIVE (NEGATIVE); UR LEUKOCYTE ESTERASE (Dip) 3+ Leu/ul (NEGATIVE); UR NITRITE (Dip) NEGATIVE (NEGATIVE); UR NONSQUAMOUS EPITHELIAL CELL 10 /HPF (NONE SEEN); UR RBC > 182 /HPF (0-5); UR TOTAL PROTEIN (Dip) 2+ mg/dl (NEGATIVE); UR UROBILINOGEN (Dip) NEGATIVE (NEGATIVE)
[2017-03-02 23:02] LABS: CANNABINOIDS Negative (NEGATIVE)
[2017-03-02 23:09] LABS: BARBITURATES Negative (NEGATIVE); BENZODIAZEPINES Negative (NEGATIVE); COCAINE Negative (NEGATIVE); OPIATES Negative (NEGATIVE)
[2017-03-03] MEDS ORDERED: CEFTRIAXONE 2 GM/50 ML (PMX) 50 ML IVPB ONE
[2017-03-03 00:51] LABS: ETHANOL < 10.0 mg/dl
[2017-03-03] MEDS ORDERED: IBUP-1542 PO (01:05)
[2017-03-03] MEDS ORDERED: ACET325T33 PO (01:05)
[2017-03-03] MEDS ORDERED: CIPR500T4 PO (01:05)
[2017-03-03 02:13] VITALS: BP 121/72; PULSE 88; RESP 16; TEMP 99.3
== END 2017-03-03 02:14 | disposition home or self-care (01) ==
LOC: E/R 20:26
DX: E10.65 Type 1 diabetes mellitus with hyperglycemia (principal); N30.01 Acute cystitis with hematuria; R07.9 Chest pain, unspecified; Z79.4 Long term (current) use of insulin
CPT/HCPCS: 36415; 71010; 80053; 80306; 80307; 81001; 82803; 82962; 83605; 83690; 84484; 85025; 85610; 85730; 87040; 87086; 87400; 93005; 96374; 96375; J0692; J0696; J3370; J7030; Z7502; Z7610